=== PATIENT | female | born 1990 | race Caucasian/White ===

== ENCOUNTER → 2020-08-09 14:40 | Outpatient (BNVA) | payer MEDICAID, SELFPAY | PROVIDERS: Family Provider Family Medicine; PCP Family Medicine; Visit Provider Nurse Practitioner Family | DX: Z20.828 Contact with and (suspected) exposure to other viral communicable diseases (principal); J06.9 Acute upper respiratory infection, unspecified | CPT/HCPCS: 87635 ==

== ENCOUNTER 2020-12-22 15:55 | Outpatient (CLI) | payer MEDICAID, SELFPAY ==
--- NOTE | 2020-12-22 16:09 | XRR_ITS ---
PROCEDURE INFORMATION: Exam: XR Lumbosacral Spine, 4 or 5 Views Exam date and time: 12/22/2020 4:10 PM Age: 30 years old Clinical indication: Low back pain TECHNIQUE: Imaging protocol: XR of the lumbosacral spine, 4 or 5 views. COMPARISON: CT abdomen pelvis w con* [id number] 08/12/2018 7:17 PM FINDINGS: Bones/joints: Normal. No acute fracture. Normal alignment. Soft tissues: Unremarkable. XR/XR lumbar spine min 4V [id number] IMPRESSION: No acute findings.
== END 2020-12-22 15:56 | disposition home or self-care (01) ==
PROVIDERS: Visit Provider Nurse Practitioner Family
DX: M54.16 Radiculopathy, lumbar region (principal)
CPT/HCPCS: 72110

== ENCOUNTER → 2023-08-03 13:32 | Outpatient (BNVA) | payer MEDICAID, SELFPAY | PROVIDERS: PCP Clinical Nurse Specialist Adult Health; Visit Provider Nurse Practitioner Family | DX: R09.89 Other specified symptoms and signs involving the circulatory and respiratory systems (principal); R51.9 Headache, unspecified; R05.9 Cough, unspecified; J02.9 Acute pharyngitis, unspecified; J06.9 Acute upper respiratory infection, unspecified | CPT/HCPCS: 87071; 87426; 87880 ==

== ENCOUNTER → 2023-11-06 09:42 | Outpatient (BNVA) | payer MEDICAID, SELFPAY | PROVIDERS: PCP Clinical Nurse Specialist Adult Health; Visit Provider Nurse Practitioner Family | DX: J02.9 Acute pharyngitis, unspecified (principal) | CPT/HCPCS: 87880 ==

== ENCOUNTER → 2024-01-19 11:48 | Outpatient (BNVA) | payer MEDICAID, SELFPAY | PROVIDERS: PCP Clinical Nurse Specialist Adult Health; Visit Provider Nurse Practitioner Family | DX: J02.9 Acute pharyngitis, unspecified (principal); R50.9 Fever, unspecified | CPT/HCPCS: 87400; 87880 ==

== ENCOUNTER → 2024-01-26 11:25 | Outpatient (BNVA) | payer MEDICAID, SELFPAY | PROVIDERS: PCP Clinical Nurse Specialist Adult Health; Visit Provider Nurse Practitioner | DX: J02.9 Acute pharyngitis, unspecified (principal) | CPT/HCPCS: 87880 ==

== ENCOUNTER → 2024-06-17 07:35 | Outpatient (BNVA) | payer MEDICAID, SELFPAY | PROVIDERS: PCP Clinical Nurse Specialist Adult Health; Visit Provider Clinical Nurse Specialist Adult Health | DX: Z00.01 Encounter for general adult medical examination with abnormal findings (principal) | CPT/HCPCS: 80053; 80061; 83036; 85025 ==

== ENCOUNTER 2024-07-26 08:40 | Outpatient (CLI) | payer MEDICAID, SELFPAY ==
--- NOTE | 2024-07-26 08:45 | MR_ITS ---
WS: [id number] MRI LUMBAR SPINE NONCONTRAST HISTORY: low back pain with radiculopathy COMPARISON: None available. TECHNIQUE: Sagittal and axial multisequence imaging is submitted. Normal lumbar alignment with no compression fractures or marrow edema. Disc spaces and vertebral body heights are well-preserved. Conus terminates normally at L1-2 disc level. L1-L2: Normal. L2-L3: Mild disc bulging and facet disease. L3-L4: Mild annular disc bulging with ligamentum flavum and facet arthritis. Very slight central and bilateral subarticular recess and foraminal encroachment. L4-L5: Mild annular disc bulging with moderate ligamentum flavum and facet arthritis. Mild central, b ilateral subarticular recess and foraminal stenosis, LEFT greater than RIGHT. Mild encroachment upon the traversing L5 nerve roots. L5-S1: Moderate annular disc bulging with a central disc protrusion contacting the S1 nerve roots patti aterally. Ligamentum flavum and facet arthritis. Moderate central, bilateral subarticular recess and mild foraminal stenosis. Paravertebral soft tissues are negative. MR/MR lumbar spine wo con* [id number] IMPRESSION: 1. No severe high-grade central or foraminal stenosis. 2. L5-S1: Annular disc bulge with a central disc protrusion contacting the S1 nerve roots bilaterally. Moderate central, bilateral subarticular recess and mi ld foraminal stenosis. 3. L4-5: Mild central, bilateral subarticular recess and foraminal stenosis, L EFT greater than RIGHT. Mild encroachment upon the traversing L5 nerve roots. 4. L3-4: Mild central with bilateral subarticular recess and foraminal stenosi s.
== END 2024-07-26 08:41 | disposition home or self-care (01) ==
LOC: RAD 08:40
PROVIDERS: PCP Clinical Nurse Specialist Adult Health; Visit Provider Clinical Nurse Specialist Adult Health
DX: M54.16 Radiculopathy, lumbar region (principal); M51.36 Other intervertebral disc degeneration, lumbar region; M51.37 Other intervertebral disc degeneration, lumbosacral region; M48.061 Spinal stenosis, lumbar region without neurogenic claudication; M48.08 Spinal stenosis, sacral and sacrococcygeal region
CPT/HCPCS: 72148; 80053; 80061; 83036; 85025

== ENCOUNTER → 2024-08-19 13:45 | Outpatient (BNVA) | payer MEDICAID, SELFPAY | PROVIDERS: PCP Clinical Nurse Specialist Adult Health; Visit Provider Orthopaedic Surgery | DX: M54.16 Radiculopathy, lumbar region (principal) | CPT/HCPCS: 72110 ==

== ENCOUNTER → 2025-09-16 09:03 | Outpatient (BNVA) | payer MEDICAID, SELFPAY | PROVIDERS: PCP Clinical Nurse Specialist Adult Health; Visit Provider Family Medicine Adult Medicine | DX: R30.0 Dysuria (principal) | CPT/HCPCS: 81000 ==